=== PATIENT | female | born 1990 | race African-American/Black ===

== ENCOUNTER 2024-10-22 03:35 | Emergency (ER) | payer OTHER ==
[2024-10-22] MEDS ORDERED: Ibuprofen 200 MG TAB ONE (03:55)
== END 2024-10-22 04:00 | disposition home or self-care (01) ==
LOC: CSHERS 03:35
DX: K08.89 Other specified disorders of teeth and supporting structures (principal); K03.81 Cracked tooth; F17.210 Nicotine dependence, cigarettes, uncomplicated
CPT/HCPCS: 99282